=== PATIENT | female | born 1975 | race African-American/Black ===

== ENCOUNTER 2021-12-12 15:35 | Emergency (ER) | payer BC, MEDICAID, SELFPAY ==
[2021-12-12 15:52] VITALS: BP 125/71; PULSE 96; RESP 16; TEMP 36.4; O2SAT 98
[2021-12-12 16:32] LABS: Glucose Point of Care 398 mg/dl (65-105)
--- NOTE | 2021-12-12 16:35 | ED.GENADULT ---
HPI - General Adult General Chief complaint: Nausea/Vomiting/Diarrhea Stated complaint: yeast infection/diarrhea Time Seen by Provider: 12/12/21 16:25 Source: patient, RN notes reviewed and old records reviewed Mode of arrival: ambulatory Limitations: no limitations History of Present Illness HPI narrative: 46 year old female who presents to [facility] care with complaints of 2 week duration of yeast infection symptoms, she reports that she has tried some OTC Monistat ointment with no improvement in her irritation or itching. She reports that she is now having small amount of thick white discharge. Patient denies any concern for STD exposure. Patient states that she is diabetic and she knows that her sugars are elevated they have been running a little over 200 recently. Patient reports that she has been without her Januvia for the pat 2 month that her insurance will not pay for this medication. Patient reports that she is suppose to see her doctor on Friday to reevaluate her medication and put her on something different. Blood sugar 398 in clinic, patient reports she has dose of glipizide to take this evening and reports that sugars have not been that elevated. Patient admits that she had diarrhea yesterday thinks she ate something bad,no diarrhea today. MD complaint: yeast infection uncontrolled diabetes Onset (ago): week(s) (2) Severity scale (1-10): 2 Quality: burning, aching and other (itchy perineum) Treatments prior to arrival: other (monistat) Related Data Home Medications Medication Instructions Recorded Confirmed ergocalciferol (vitamin D2) 1,250 12/12/21 mcg (50,000 unit) capsule ferrous sulfate 325 mg (65 mg mg 12/12/21 iron) tablet (FeroSul) glipizide 5 mg tablet mg 12/12/21 metformin 1,000 mg tablet mg 12/12/21 metoprolol tartrate 50 mg tablet mg 12/12/21 Allergies Allergy/AdvReac Type Severity Reaction Status Date / Time Penicillins Allergy Severe Swelling Verified 12/12/21 16:20 Review of Systems Review of Systems: CONSTITUTIONAL: Denies fever, chills, or sweats. EYES: Denies visual changes, redness, or discharge. ENT: Denies rhinorrhea, congestion, sore throat, or otalgia. CARDIOVASCULAR: Denies chest pain, palpitations, or edema. RESPIRATORY: Denies cough or dyspnea. GASTROINTESTINAL: Denies abdominal pain,no nausea, vomiting, episodes of diarrhea yesterday none today. GENITOURINARY: Denies dysuria or hematuria.positive for itching burning with white thick discharge vaginally SKIN: Denies rash or itching. MUSCULOSKELETAL: Denies back pain, joint pain, or myalgia. NEUROLOGIC: Denies headache, numbness, or weakness. PSYCHIATRIC: Denies anxiety or depression. All systems reviewed & are unremarkable except as noted in HPI and below PMFSH Past Medical History Medical History (Updated 12/13/21 @ 00:00 by Cristina Pagan) Diabetes Social History Social History (Updated 12/14/21 @ 16:33 by Jacque Rodney NP) Smoking status: Never smoker Alcohol intake: current Alcohol use details: rare Substance use type: does not use Living arrangements: with family Gender identity (if verbalized by the patient): Female Comments At time of signature, agree with nursing past medical, surgical, social and family history. There is no relevant family history pertinent to the presenting complaint Exam Narrative: GENERAL: Well-appearing, well-nourished, and in no acute distress. HEAD: Normocephalic, atraumatic. EYES: PERRLA and EOMI. ENT: Nares clear, no rhinorrhea or epistaxis. Mucous membranes moist.TM's normal with good light reflex, throat pink with no lesions or swelling. NECK: Supple. no lymphadenopathy CHEST: Clear to auscultation. No respiratory distress.SAO2 98%on room air HEART: Regular rate and rhythm. No murmur heard. Normal peripheral pulses. ABDOMEN: Soft, nontender, nondistended, normal active bowel sounds.no abdominal pain or cramping, vaginal discharge thick white with itching, some va
== END 2021-12-12 16:47 | disposition home or self-care (01) ==
PROVIDERS: Emergency Provider Registered Nurse
DX: B37.3 Candidiasis of vulva and vagina (principal); E11.9 Type 2 diabetes mellitus without complications; Z91.14 Patient's other noncompliance with medication regimen; I10 Essential (primary) hypertension
CPT/HCPCS: 82948; 99213; G0463